=== PATIENT | female | born 1955 | race Caucasian/White ===

== ENCOUNTER 2016-10-17 15:38 | Emergency (ER) | payer OTHER ==
[~2016-10-17] VITALS: Ht 157.5 cm; Wt 57.3 kg
[2016-10-17 15:47] VITALS: BP 170/94; PULSE 81; RESP 16; TEMP 98.5; O2SAT 96
--- NOTE | 2016-10-17 15:56 | PD ---
HPI . right hand swelling and pain x 5 days Chief Complaint: Edema Time Seen by Provider: 15:56 Travel History International Travel<30 days: No Contact w/Intl Traveler<30days: No Traveled to known affect area: No History of Present Illness HPI 60-year-old female with no significant past medical history other than tobaccoism here with complaints of right hand swelling and pain for the past 5 days. Patient says that she initially noticed this while she was at work that she had developed some right hand pain. She continued using her hand and as time progressed she noticed that the pain was getting more prominent. She also noticed some swelling. Today she is here in the emergency department with very minimal swelling and tells me that the swelling has significantly reduced as she has been using ice at home. She rates the pain as 8/10 without any further radiation. She denies any recent injury, but has pain in the anatomical snuffbox. 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 She has no other complaints PFSH Past Medical History Cardiovascular Problems: No Diabetes: No Diminished Hearing: No Immunizations Current: Yes ?: Not LMP: menapause Menopausal: Yes Past Surgical History Section: Yes Social History Alcohol Use: No Tobacco Use: Yes (1 PPD) Substance Use: No Allergies-Medications (Allergen,Severity, Reaction): Coded Allergies: Penicillin (Verified Allergy, Severe, Anaphylaxis, 10/17/16) Franklin (Verified Allergy, Intermediate, swelling/rash, 10/17/16) Reported Meds & Prescriptions Reported Meds & Active Scripts Active Ibuprofen 800 Mg Tab 800 Mg PO TID Review of Systems General / Constitutional: No: Fever Eyes: No: Visual changes HENT: No: Headaches Cardiovascular: No: Chest Pain or Discomfort Respiratory: No: Shortness of Breath Gastrointestinal: No: Abdominal Pain Genitourinary: No: Dysuria Musculoskeletal: Positive: Pain (right hand pain ) Skin: Positive Other (right hand mild edema), No Rash Neurologic: No: Weakness Psychiatric: No: Depression Endocrine: No: Polydipsia Hematologic/Lymphatic: No: Easy Bruising Physical Exam Narrative GENERAL: AAO x 3, no acute distress, Well-nourished, well-developed patient. SKIN: Warm and dry. No visible rashes or bruising. Clubbing of all fingernails. HEAD: Normocephalic and atraumatic. EYES: No scleral icterus. No injection or drainage. ENT: No nasal drainage noted. Mucous membranes pink. Airway patent. NECK: Supple, trachea midline. No JVD. CARDIOVASCULAR: Regular rate and rhythm without murmurs, gallops, or rubs. RESPIRATORY: Diminished breath sounds throughout. No rhonchi, Rales or wheezing. GASTROINTESTINAL: Visual inspection normal EXTREMITIES: No cyanosis. mild edema in the right thenar aspect of the hand. pain with movement, but range of motion is normal. Tenderness to anatomical snuffbox. radial and ulnar pulse normal. NO swelling of wrist or arm. no temperature variation of this extremity. No erythema. BACK: No obvious deformity. 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 Data Data Last Documented VS Vital Signs Date Time Temp Pulse Resp B/P Pulse Ox O2 Delivery O2 Flow Rate FiO2 10/17/16 15:47 98.5 81 16 170/94 96 Orders Hand, Complete ([id number]) (10/17/16 16:00) Ketorolac Inj (Toradol Inj) (10/17/16 16:15) MDM Medical Decision Making Medical Screen Exam Complete: Yes Emergency Medical Condition: Yes Medical Record Reviewed: Yes Differential Diagnosis OA, RA, tendinitis, hand fracture, bone contusion, less likely finger dislocation Narrative Course 60 yr old female here with c/o right hand pain and mild swelling. Exam reveals very minimal swelling and pain in anatomical snuffbox. Imaging ordered: Toradol given for pain. Last Impressions Hand X-Ray 10/17/16 1600 Signed Impressions: Service Date/Time: Monday, October 17, 2016 16:21 - CONCLUSION: Soft tissue swelling without fracture. Nonspecific degenerative changes. Wally Brizuela MD Discussed with patient. Likely from slight injury at work and overuse. Recommend RICE. Ibuprofen. Advised f/u with PCP if pain persists. Patient thanked me for her care. Diagnosis Primary Impression: Right hand pain Patient Instructions: General Instructions Additional Instructions: Rest the affected area as much as possible. Ice this area for 15-20 minutes at a time. You can do this every hour or as much as tolerated. Keep this area compressed (alanna bandage) as tolerated. Elevate this area. Use ibuprofen as needed for pain and inflammation. Please return to emergency department if your symptoms return or worsen. Follow up with your primary care provider. Take medications as prescribed. Med/Other Pt SpecificInfo: Prescription(s) given Scripts Ibuprofen 800 Mg [id number] Mg PO TID #21 TAB Prov:Tonja Lopez DO 10/17/16 Disposition: 01 DISCHARGE HOME Condition: Stable Clau Xiong Oct 17, 2016 15:56
[2016-10-17] MEDS ORDERED: KETOROLAC TROMETHAMINE 60 MG/2 ML (IM) VIAL IM ONE (16:15)
--- NOTE | 2016-10-17 16:38 | RADRPT ---
EXAM DATE/TIME: 10/17/2016 16:21 [facility] COMPARISON: No previous studies available for comparison. INDICATIONS : Swollen right hand. Right hand and wrist pain. MEDICAL HISTORY : None. SURGICAL HISTORY : None. ENCOUNTER: Initial ACUITY: 4 - 6 days PAIN SCORE: 6/10 LOCATION: Right upper extremity hand FINDINGS: Three view examination of the right hand demonstrates no soft tissue swelling, dislocation, or fractu re. Degenerative changes of the interphalangeal joints and first carpal metacarpal joint. Soft tissue swelling. Bony mineralization is normal. CONCLUSION: Soft tissue swelling without fracture. Nonspecific degenerative changes. Wally Brizuela MD on October 17, 2016 at 16:36 Board Certified Radiologist. This report was verified electronically.
[2016-10-17] MEDS ORDERED: IBUP800T23 PO (16:45)
== END 2016-10-17 16:58 | disposition home or self-care (01) ==
LOC: PHEFT 15:38
DX: M79.641 Pain in right hand (principal)
CPT/HCPCS: 73130; 96372; 99284; J1885